=== PATIENT | male | born 1960 | race Caucasian/White ===

== ENCOUNTER → 2018-06-12 | Outpatient (CLI) | payer BC ==
[~2018-06-12] MED LIST: ATIVAN1 MG PO; DELTASONE20 M1 PO; DOXYCYCLINE HY100 MG PO; FLEXERIL5 MG PO; GABAPENTIN600 MG PO; HYDROMORPHONE HC4 MG PO; LEVO-T112 MCG PO; LEXAPRO10 MG PO; OMEPRAZOLE40 M1 PO; SIMVASTATIN20 MG PO
== END | disposition home or self-care (01) ==
LOC: OPR 08:17 → EDSTATUS 09:00 → OPR 09:00
DX: C34.12 Malignant neoplasm of upper lobe, left bronchus or lung (principal); Z87.891 Personal history of nicotine dependence
CPT/HCPCS: 71045; 77012; 88305; 88341 TC; 88342 TC; J3010